=== PATIENT | male | born 1985 | race Hispanic/Latino ===

== ENCOUNTER 2017-10-22 12:53 | Emergency (ER) | payer BC ==
[2017-10-22 13:14] VITALS: BMI 29.0
[2017-10-22 13:17] VITALS: BP 124/77; PULSE 94; RESP 16; TEMP 98.8; O2SAT 100
[2017-10-22 13:52] LABS: URINE BILIRUBIN NEGATIVE (NEGATIVE); URINE BLOOD NEGATIVE (NEGATIVE); URINE GLUCOSE (UA) NEGATIVE (NEGATIVE); URINE LEUKOCYTE ESTERASE NEGATIVE Leu/uL (NEGATIVE); URINE NITRATE NEGATIVE (NEGATIVE); URINE PROTEIN NEGATIVE mg/dL (<30 mg/dL)
[2017-10-22 13:55] LABS: URINE APPEARANCE CLEAR (CLEAR); URINE COLOR YELLOW (YELLOW)
[2017-10-22] MEDS ORDERED: cefTRIAXone (Rocephin) 250 mg Inj IM STA (14:15)
--- NOTE | 2017-10-22 14:21 | ED PDOC ---
Arrival/HPI - General Chief Complaint: Male Genitourinary Time Seen by Provider: 10/22/17 13:26 Historian: Patient - History of Present Illness Narrative History of Present Illness (Text): 10/22/17 14:18 31yo male with no PMHx present requesting treated for STD. States his partner was treated for Chlamydia. He denies any penile discharge, urinary symptoms, back pain, penile lesion/rah, fever. Past Medical History - Provider Review Nursing Documentation Reviewed: Yes - Infectious Disease Hx of Infectious Diseases: None - Psychiatric Hx Psychophysiologic Disorder: No Hx Substance Use: No - Anesthesia Hx Anesthesia: No Hx Anesthesia Reactions: No Hx Malignant Hyperthermia: No Family/Social History - Physician Review Nursing Documentation Reviewed: Yes Family/Social History: Unknown Family HX Smoking Status: Heavy Smoker > 10 Cigarettes Daily Hx Alcohol Use: Yes Hx Substance Use: No Allergies/Home Meds Allergies/Adverse Reactions: Allergies No Known Allergies Allergy (Verified 08/28/15 16:54) Home Medications: Home Meds Medication Instructions Recorded Confirmed No Known Home Med 08/28/15 10/22/17 Review of Systems - Physician Review All systems were reviewed & negative as marked: Yes - Review of Systems Constitutional: Normal Eyes: Normal ENT: Normal Respiratory: Normal Cardiovascular: Normal Gastrointestinal: Normal Genitourinary Male: Normal, Other (Venereal disease exposure) Musculoskeletal: Normal Skin: Normal Neurological: Normal Endocrine: Normal Hemo/Lymphatic: Normal Psychiatric: Normal Physical Exam Vital Signs Reviewed: Yes Vital Signs Temp Pulse Resp BP Pulse Ox 10/22/17 13:16 98.8 F 94 H 16 124/77 100 Temperature: Afebrile Blood Pressure: Normal Pulse: Regular Respiratory Rate: Normal Appearance: Positive for: Well-Appearing, Non-Toxic, Comfortable Pain Distress: None Mental Status: Positive for: Alert and Oriented X 3 - Systems Exam Head: Present: Atraumatic, Normocephalic Pupils: Present: PERRL Extroacular Muscles: Present: EOMI Conjunctiva: Present: Normal Mouth: Present: Moist Mucous Membranes Neck: Present: Normal Range of Motion Respiratory/Chest: Present: Clear to Auscultation, Good Air Exchange. No: Respiratory Distress, Accessory Muscle Use Cardiovascular: Present: Regular Rate and Rhythm, Normal S1, S2. No: Murmurs Abdomen: Present: Normal Bowel Sounds. No: Tenderness, Distention, Peritoneal Signs Back: Present: Normal Inspection Upper Extremity: Present: Normal Inspection. No: Cyanosis, Edema Lower Extremity: Present: Normal Inspection. No: Edema Neurological: Present: GCS=15, CN II-XII Intact, Speech Normal Skin: Present: Warm, Dry, Normal Color. No: Rashes Psychiatric: Present: Alert, Oriented x 3, Normal Insight, Normal Concentration Medical Decision Making ED Course and Treatment: 10/22/17 21:22 Pt in Ed for stated history. Advised to avoid sex until he ggets his reuslt and if positive have his sexual partner here treated. - Lab Interpretations Lab Results: Lab Results 10/22/17 13:28: Urine Color Yellow, Urine Appearance Clear, Urine pH 8.0, Ur Specific [place] 1.015, Urine Protein Negative, Urine Glucose (UA) Negative, Urine Ketones Trace H, Urine Blood Negative, Urine Nitrate Negative, Urine Bilirubin Negative, Urine Urobilinogen 1.0 H, Ur Leukocyte Esterase Negative - Medication Orders Current Medication Orders: Discontinued Medications Azithromycin (Zithromax) 1,000 mg PO STAT STA PRN Reason: Protocol Stop: 10/22/17 14:16 Last Admin: 10/22/17 14:30 Dose: 1,000 mg Ceftriaxone Sodium (Rocephin) 250 mg IM STAT STA PRN Reason: Protocol Stop: 10/22/17 14:16 Last Admin: 10/22/17 14:30 Dose: 250 mg IM Administration Charges Document 10/22/17 14:30 GMD (Rec: 10/22/17 14:30 GMD [facility]) Injection Site MAR Injection Site Left Gluteus Ryan Charges for Administration # of IM Administrations 1 Disposition/Present on Arrival - Present on Arrival Any Indicators Present on Arrival: No History of DVT/PE: No History of Uncontrolled Diabetes: No Urinary Catheter: No History of Decub. Ulcer: No History Surgical Site Infection Following: None - Disposition Have Diagnosis and Disposition been Completed?: Yes Diagnosis: Exposure to venereal disease Disposition: HOME/ ROUTINE Disposition Time: 14:20 Patient Plan: Discharge Condition: STABLE Discharge Instructions (ExitCare): Sexually Transmitted Diseases (ED) Additional Instructions: Follow up with medical records in 3days for result Return to ED for any new symptoms Referrals: [facility] at [facility] [Outside] - Follow up with primary Forms: [employer] (Dive[employer])
[2017-10-22] MEDS ORDERED: Lidocaine 1% Inj (20ml) ONE (14:23)
== END 2017-10-22 14:29 | disposition home or self-care (01) ==
LOC: ED 12:53
DX: Z20.2 Contact with and (suspected) exposure to infections with a predominantly sexual mode of transmission (principal)
CPT/HCPCS: 81003; 87491; 87591; 96372; 99284; J0696

== ENCOUNTER 2019-01-13 06:58 | Emergency (ER) | payer BC, OTHER ==
[2019-01-13 06:59] VITALS: BMI 29.0
[2019-01-13 07:07] VITALS: RESP 18; TEMP 97.7
[2019-01-13] MEDS ORDERED: TDAP Vaccine 0.5 mL Syr IM ONE (07:29)
[2019-01-13] MEDS ORDERED: Emtricitabine-Tenofovir 200 mg-300 mg Tab PO STA (07:29)
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
[2019-01-13 07:56] LABS: BASO # 0.03 K/mm3 (0.0-2.0); BASO % 0.5 % (0.0-3.0); EOS # 0.3 (0.0-0.7); EOS % 4.1 % (1.5-5.0); LYMPH # 2.1 (1.2-3.4); LYMPH % 32.6 % (22.0-35.0); MEAN CELL VOLUME 89.2 fl (80.0-105.0); MEAN CORPUSCULAR HEMOGLOBIN 29.9 pg (25.0-35.0); MEAN CORPUSCULAR HGB CONC 33.5 g/dl (31.0-37.0); MEAN PLATELET VOLUME 9.6 fl (7.0-11.0); MONO # 0.5 (0.1-0.6); MONO % 6.9 % (1.0-6.0); RBC 5.36 10^6/uL (3.5-6.1); RED CELL DISTRIBUTION WIDTH 13.1 % (11.5-14.5); WHITE BLOOD COUNT 6.5 10^3/uL (4.5-11.0)
[2019-01-13 08:13] LABS: ALB/GLOB RATIO 1.2 (1.1-1.8); ALBUMIN 4.2 g/dL (3.0-4.8); ALT/SGPT 26 U/L (7-56); AMYLASE 77 U/L (35-125); AST/SGOT 51 U/L (17-59); BLOOD UREA NITROGEN 13 mg/dL (7-21); CALCIUM 9.2 mg/dL (8.4-10.5); GFR NON-AFRICAN AMERICAN > 60
[2019-01-13 11:43] LABS: URINE BILIRUBIN NEGATIVE (NEGATIVE); URINE BLOOD TRACE-INTACT (NEGATIVE); URINE GLUCOSE (UA) NEGATIVE (NEGATIVE); URINE LEUKOCYTE ESTERASE NEGATIVE Leu/uL (NEGATIVE); URINE PROTEIN TRACE mg/dL (<30 mg/dL); URINE UROBILINOGEN 0.2 E.U./dL (<1 E.U./dL)
[2019-01-13 11:46] LABS: URINE APPEARANCE CLEAR (CLEAR); URINE COLOR YELLOW (YELLOW)
[2019-01-13 12:14] LABS: URINE WBC 0 - 2 /hpf (0-6)
[2019-01-13 12:15] LABS: URINE BACTERIA MANY /hpf; URINE FINE GRANULAR CAST 0 - 2 /hpf; URINE HYALINE CAST 0 - 2 /hpf
[2019-01-13 12:33] LABS: HEPATITIS B SURFACE AG Negative (NEGATIVE)
[2019-01-13 12:39] LABS: HEPATITIS A IGM NEGATIVE (NEGATIVE); HEPATITIS B CORE AB NEGATIVE (NEGATIVE)
[2019-01-13 12:50] LABS: HEPATITIS C ANTIBODY NEGATIVE (NEGATIVE)
[2019-01-13 13:15] VITALS: BP 110/78; PULSE 78; O2SAT 98
== END 2019-01-13 13:15 | disposition home or self-care (01) ==
LOC: ED 06:58
DX: Z20.9 Contact with and (suspected) exposure to unspecified communicable disease (principal); F17.210 Nicotine dependence, cigarettes, uncomplicated; W46.0XXA Contact with hypodermic needle, initial encounter; Y99.0 Civilian activity done for income or pay; Z23 Encounter for immunization